=== PATIENT | female | born 1960 | race Caucasian/White ===

== ENCOUNTER 2018-10-05 10:16 | Inpatient (IN) | payer MEDICARE, MEDICAID | END 2018-10-09 12:05 | disposition home or self-care (01) | LOC: PAS IN 10:16 → ORTHO 4S 17:28 | PROC: 0SRC0J9 Replacement of Right Knee Joint with Synthetic Substitute, Cemented, Open Approach (ICD-10-PCS; principal; 2018-10-05 13:48) | DX: M17.11 Unilateral primary osteoarthritis, right knee (principal); D62 Acute posthemorrhagic anemia ==